=== PATIENT | female | born 1985 | race Caucasian/White ===

== ENCOUNTER 2016-11-15 02:42 | Emergency (ER) | payer MEDICAID ==
[~2016-11-15] VITALS: Ht 167.6 cm; Wt 75.0 kg
[2016-11-15 02:45] VITALS: BP 118/75; PULSE 100; RESP 18; TEMP 97.9; O2SAT 99
[2016-11-15] MEDS ORDERED: CLON0.5T PO (03:04)
[2016-11-15] MEDS ORDERED: GABA400C5 PO (03:04)
[2016-11-15] MEDS ORDERED: SERO400T PO (03:04)
[2016-11-15] MEDS ORDERED: HYDR-3516 PO (03:04)
[2016-11-15] MEDS ORDERED: SODIUM CHLOR 0.9% 1000 ML INJ 1,000 ML IV ONE (03:14)
--- NOTE | 2016-11-15 03:17 | PD ---
HPI Chief Complaint: Alcohol/Drug Intoxication Time Seen by Provider: 03:07 Travel History International Travel<30 days: No Contact w/Intl Traveler<30days: No Traveled to known affect area: No History of Present Illness HPI This is a 31-year-old female who was brought in by the police allegedly for intoxication. The patient reports that she took her usual Seroquel tonight in order to help her sleep. She reports that she didn't drove to a gas station to get a soda but the Seroquel caught up with her and she fell asleep in her car. The patient is currently sleeping, difficult to arouse. She endorses drinking 3 beers tonight. Denies any illicit drug use. She has no medical complaints at this time. [facility] Past Medical History Medical History: Unable to Obtain ?: Unknown Past Surgical History Surgical History: Unable to Obtain Social History Alcohol Use: Yes Tobacco Use: Yes Substance Use: No (UNKNOWN) Allergies-Medications (Allergen,Severity, Reaction): Coded Allergies: No Known Allergies (Unverified , 11/15/16) Reported Meds & Prescriptions Reported Meds & Active Scripts Active Reported Seroquel (Quetiapine Fumarate) 400 Mg Tab 600 Mg PO HS Gabapentin 400 Mg Cap 400 Cap PO TID Hydrocodone-Acetaminophen 5-325 mg Tab 1 Tab PO Q8HR PRN Clonazepam 0.5 Mg Tab 0.5 Mg PO TID Review of Systems ROS Limitations: Poor Historian Except as stated in HPI: all other systems reviewed are Neg Physical Exam Exam Limitations: Poor Historian Narrative GENERAL: This is a well-developed well-nourished female who is drowsy but responds to voice. SKIN: Warm and dry. HEAD: Atraumatic. Normocephalic. EYES: Pupils equal and round. No scleral icterus. No injection or drainage. ENT: No nasal bleeding or discharge. Mucous membranes pink and moist. NECK: Trachea midline. No JVD. CARDIOVASCULAR: Regular rate and rhythm. No murmur appreciated. RESPIRATORY: No accessory muscle use. Clear to auscultation. Breath sounds equal bilaterally. GASTROINTESTINAL: Abdomen soft, non-tender, nondistended. Hepatic and splenic margins not palpable. MUSCULOSKELETAL: No obvious deformities. No edema. NEUROLOGICAL: Drowsy. No obvious cranial nerve deficits. Motor grossly within normal limits. Slurred speech. PSYCHIATRIC: Appropriate mood and affect; insight and judgment normal. Data Data Last Documented VS Vital Signs Date Time Temp Pulse Resp B/P Pulse Ox O2 Delivery O2 Flow Rate FiO2 11/15/16 02:45 97.9 100 18 118/75 99 Orders Complete Blood Count With Diff (11/15/16 03:14) Comprehensive Metabolic Panel (11/15/16 03:14) Ct Brain W/O Iv Contrast(Rout) (11/15/16 03:14) Iv Access Insert/Monitor (11/15/16 03:14) Sodium Chlor 0.9% 1000 Ml Inj (Ns 1000 M (11/15/16 03:14) Drug Screen, Random Urine (11/15/16 03:14) Alcohol (Ethanol) (11/15/16 03:14) Ed Urine Pregnancytest Poc (11/15/16 03:14) Labs Laboratory Tests Test 11/15/16 03:20 White Blood Count 7.5 TH/MM3 Red Blood Count 4.42 MIL/MM3 Hemoglobin 13.6 GM/DL Hematocrit 38.9 % Mean Corpuscular Volume 88.0 FL Mean Corpuscular Hemoglobin 30.8 PG Mean Corpuscular Hemoglobin 35.0 % Concent Red Cell Distribution Width 13.6 % Platelet Count 210 TH/MM3 Mean Platelet Volume 9.4 FL Neutrophils (%) (Auto) 34.1 % Lymphocytes (%) (Auto) 57.6 % Monocytes (%) (Auto) 7.2 % Eosinophils (%) (Auto) 0.7 % Basophils (%) (Auto) 0.4 % Neutrophils # (Auto) 2.6 TH/MM3 Lymphocytes # (Auto) 4.3 TH/MM3 Monocytes # (Auto) 0.5 TH/MM3 Eosinophils # (Auto) 0.1 TH/MM3 Basophils # (Auto) 0.0 TH/MM3 CBC Comment DIFF FINAL Differential Comment Sodium Level 144 MEQ/L Potassium Level 4.0 MEQ/L Chloride Level 109 MEQ/L Carbon Dioxide Level 24.1 MEQ/L Anion Gap 11 MEQ/L Blood Urea Nitrogen 14 MG/DL Creatinine 0.65 MG/DL Estimat Glomerular Filtration 105 ML/MIN Rate Random Glucose 91 MG/DL Calcium Level 8.7 MG/DL Total Bilirubin 0.4 MG/DL Aspartate Amino Transf 29 U/L (AST/SGOT) Alanine Aminotransferase 24 U/L (ALT/SGPT) Alkaline Phosphatase 128 U/L Total Protein 7.4 GM/DL Albumin 3.8 GM/DL Urine Opiates Screen NEG Urine Barbiturates Screen NEG Urine Amphetamines Screen NEG Urine Benzodiazepines Screen POS Urine Cocaine Screen NEG Urine Cannabinoids Screen POS Ethyl Alcohol Level 191 MG/DL MDM Medical Decision Making Medical Screen Exam Complete: Yes Emergency Medical Condition: Yes Medical Record Reviewed: Yes Differential Diagnosis Seroquel side effect versus polysubstance abuse versus intoxication versus closed head injury versus electrolyte abnormality Narrative Course 31-year-old female who presents for evaluation after being found sleeping in her car in front of a gas station. She reports that she took her Seroquel to sleep, drove to the gas station to get a soda, and fell asleep. She endorses drinking 3 beers. She is quite drowsy and initial examination but she has a normal respiration rate, is not hypoxic. She responds to verbal stimulation. Plan is for basic lab work, telemetry monitor and pulse oximetry, CT brain. Lab work has been reviewed. Alcohol level 191, drug screen positive for benzodiazepines and cannabinoids. The patient will remain here until she is clinically sober and then she will be discharged. Diagnosis Primary Impression: Polysubstance abuse Additional Instructions: Avoid mixing sedating medications and alcohol. Med/Other Pt SpecificInfo: No Change to Meds Disposition: 01 DISCHARGE HOME Condition: Stable Jan Morrison Nov 15, 2016 03:16 Jan Morrison Nov 15, 2016 03:16
[2016-11-15 03:40] LABS: AUTOMATED NEUTROPHIL # 2.6 TH/MM3 (1.8-7.7); BASOPHIL % 0.4 % (0.0-2.0); EOSINOPHIL # 0.1 TH/MM3 (0-0.4); EOSINOPHIL % 0.7 % (0.0-4.0); HEMATOCRIT 38.9 % (35.0-46.0); HEMO FLAGS DIFF FINAL; LYMPH % 57.6 % (9.0-44.0); LYMPHOCYTE # 4.3 TH/MM3 (1.0-4.8); MEAN CORPUSCULAR HEMOGLOBIN 30.8 PG (27.0-34.0); MONO % 7.2 % (0.0-8.0); NEUT % 34.1 % (16.0-70.0); PLATELET COUNT 210 TH/MM3 (150-450); RED BLOOD COUNT 4.42 MIL/MM3 (4.00-5.30); RED CELL DISTRIBUTION WIDTH 13.6 % (11.6-17.2); WHITE BLOOD COUNT 7.5 TH/MM3 (4.0-11.0)
[2016-11-15 03:58] LABS: ALKALINE PHOSPHATASE 128 U/L (45-117); TOTAL BILIRUBIN ADULT 0.4 MG/DL (0.2-1.0)
[2016-11-15 04:08] LABS: ALT (GPT) 24 U/L (10-53); ANION GAP 11 MEQ/L (5-15); AST (GOT) 29 U/L (15-37); BICARBONATE 24.1 MEQ/L (21.0-32.0); BLOOD UREA NITROGEN 14 MG/DL (7-18); CHLORIDE 109 MEQ/L (98-107); GLOMERULAR FILTRATION RATE 105 ML/MIN (>89); SODIUM (NA) 144 MEQ/L (136-145)
[2016-11-15 04:09] LABS: ALCOHOL 191 MG/DL (0-5)
--- NOTE | 2016-11-15 04:22 | RADRPT ---
EXAM DATE/TIME: 11/15/2016 03:55 [facility] COMPARISON: No previous studies available for comparison. INDICATIONS : Altered mental status. ETOH RADIATION DOSE: 31.74 CTDIvol (mGy) MEDICAL HISTORY : None SURGICAL HISTORY : None. ENCOUNTER: Initial ACUITY: 1 day PAIN SCALE: Non-responsive LOCATION: cranial TECHNIQUE: Multiple contiguous axial images were obtained of the head. Using automated exposure control and adj ustment of the mA and/or kV according to patient size, radiation dose was kept as low as reasonably a chievable to obtain optimal diagnostic quality images. DICOM format image data is available electro nically for review and comparison. FINDINGS: CEREBRUM: The ventricles are normal for age. No evidence of midline shift, mass lesion, hemorrhage or acute in farction. No extra-axial fluid collections are seen. POSTERIOR FOSSA: The cerebellum and brainstem are intact. The 4th ventricle is midline. The cerebellopontine angle i s unremarkable. EXTRACRANIAL: The visualized portion of the orbits is intact. SKULL: The calvaria is intact. No evidence of skull fracture. CONCLUSION: Normal examination for a patient of this age. Thanh Ramos MD on November 15, 2016 at 4:20 Board Certified Radiologist. This report was verified electronically.
[2016-11-15 06:24] VITALS: BP 126/65; PULSE 98; RESP 16; O2SAT 100
[2016-11-15 09:35] VITALS: BP 133/42
== END 2016-11-15 09:35 | disposition home or self-care (01) ==
LOC: NEPD 02:42
DX: F19.129 Other psychoactive substance abuse with intoxication, unspecified (principal); F12.90 Cannabis use, unspecified, uncomplicated; F15.90 Other stimulant use, unspecified, uncomplicated; Y90.6 Blood alcohol level of 120-199 mg/100 ml
CPT/HCPCS: 70450; 80053; 80307; 84703; 85025; 96360; 99284; J7030